=== PATIENT | female | born 1965 | race Caucasian/White ===

== ENCOUNTER 2025-05-11 12:52 | Emergency (ER) | payer OTHER, SELFPAY ==
[2025-05-11 12:59] VITALS: BP 190/115; PULSE 93; TEMP 36.9; O2SAT 97; BMI 29.4
--- OUTSIDE RECORDS SUMMARY | 2025-05-11 13:23 | XMS_ITS | Clinical Summary ---
Author Organization [facility] Address [address] [place] [address] Care Team Providers Care Oracle Soa Architect Name Role Phone Unavailable Primary Care Provider Unavailabl e Social History Tobacco UseTypesPacks/DayYears UsedDateSmoking Tobacco: Never Assessed CommentsUnknownSex and Gender InformationValueDate RecordedSex Assigned at Not on fileLegal NefMuciie53/15/2023 6:46 PM EDTGender IdentityNot on fileSexual OrientationNot on file Plan of Treatment Not on file Insurance
--- OUTSIDE RECORDS SUMMARY | 2025-05-11 13:23 | XMS_ITS | Clinical Summary ---
Author Organization [facility] Address [id number] [place] [address] Care Team Providers Care [place] Cutter Operator Name Role Phone Rhett La MD Primary Care Provider [phone] Allergies Active AllergyReactionsCriticalityNoted DateCommentsSumatriptan Succinate 06/26/20189177Pmdqdvlkehp92/09/2018Pneumococcal Ziarjqi6206/26/2018 Medications MedicationSigDispense QuantityRefillsLast FilledStart DateEnd DateStatus levothyroxine sodium (TIROSINT) 125 mcg capsule Take 125 mcg by mouth daily.Active vortioxetine hydrobromide (TRINTELLIX ORAL) Take 20 mg/day by mouth daily.Active acetaminophen-caffeine (EXCEDRIN TENSION HEADACHE) 500-65 mg tablet Take by mouth.Active clonazePAM (KlonoPIN) 1 mg tablet Indications:Restless legsTake 1 tablet (1 mg total) by mouth nightly as needed for seizures. 30 tablet 09/24/2018Active ondansetron (ZOFRAN) 4 mg tablet Take 1 tablet (4 mg total) by mouth every 8 (eight) hours as needed for nausea or vomiting. 20 tablet Active doxepin (SINEquan) 25 mg capsule Take 1 capsule (25 mg total) by mouth 3 (three) times a day. 90 capsule Active Active Problems ProblemNoted DateDiagnosed HdjfIfxrweoenj05/07/8361Qlxvmts82/07/2019Migraine with aura and without status migrainosus, not qdyczisgswz67/07/2019Restless legs 09/22/20186323Ebauss35/27/2014 Family History Medical HistoryRelationNameCommentsHypertensionSisterRelationNameStatusComments BrotherDeceasedFatherDeceasedMotherDeceasedSister Social History Tobacco UseTypesPacks/DayYears UsedDateSmoking Tobacco: Every DayCigarettes2.520 Smokeless Tobacco: NeverAlcohol UseStandard Drinks/WeekCommentsNo0 (1 standard drink = 0.6 oz pure alcohol)AUDIT-CAnswerDate RecordedFrequency of Alcohol SwvhqbmxzjiEtwjp58/09/2018Average Number of DrinksNot on file06/26/2018Frequency of Binge DrinkingNot on file06/26/2018PHQ-2AnswerDate RecordedTotal Score0 09/22/2018ChildcareAnswerDate RgnkbwqwVchieetekDlwdhmt44/12/2019EmploymentAnswer Date WgrxjjgdGlsaqezfuvOunsvvk00/12/2019Purpose - LifeAnswerDate RecordedPurpose and direction in aorqOtdlsdg27/11/2021CommentsNoSex and Gender InformationValueDate RecordedSex Assigned at BirthNot on fileLegal SexFemale 02/21/2015 11:39 AM EDTGender IdentityNot on fileSexual OrientationNot on file Last Filed Vital Signs Vital SignReadingTime TakenCommentsBlood Uxzdpkck162/80009/24/2018 10:10 AM EST Rukka5005/09/2019 10:10 AM VDMOeopzdmfavg52.6 ??C (97.8 ??F)09/24/2018 10:10 AM ESTRespiratory Wetm501009/24/2018 10:10 AM ESTOxygen Rhvhqamtou78%06/26/2018 11:17 AM ESTInhaled Oxygen Concentration--Exzbos71.9 kg (143 lb)09/24/2018 10:10 AM IGJFqugfz575 cm (5' 3 )09/24/2018 10:10 AM ESTBody Mass Index25.33009/24/2018 10:10 AM EST Plan of Treatment Health MaintenanceDue DateLast DoneCommentsDepression Decbdxyyk16/01/1978Tobacco Bmiurcblr82/01/1978Adult BMI Cfhwqujbn57/01/1984DTaP,Tdap and Td Vaccines (1 - Tdap)1985Zoster (Shingles) Vaccine (1 of 2)2016Influenza Vaccine 03/19/2025 Medical Devices Not on file Insurance Care Teams Team MemberRelationshipSpecialtyStart DateEnd Date Rhett La MD PCP - GeneralFamily Medicine01/04/19
--- OUTSIDE RECORDS SUMMARY | 2025-05-11 13:23 | XMS_ITS | Clinical Summary ---
Author Organization [facility] Address [address] [place] [address] Care Team Providers Care Corporate Vp Advertising & Online Name Role Phone Sheng Cm MD Primary Care Provider [phone] Allergies Active AllergyReactionsCriticalityNoted DateCommentsSumatriptan Succinate Jcyryjswryl00/27/9673HjlqxsoxcxbNelcrzvrqpb29/27/2014Pneumococcal VaccineUnknown 06/26/2018 Medications MedicationSigDispense QuantityRefillsLast FilledStart DateEnd DateStatus buprenorphine 20 mcg/hour ptwk Apply as directed.Active TRINTELLIX 20 mg tab 04/24/2016Active SYMBICORT 160-4.5 mcg/actuation inhaler 05/18/2016Active ondansetron orally disintegrating (ZOFRAN ODT) 4 mg disintegrating tablet 05/31/2016Active acetaminophen/caffeine (EXCEDRIN TENSION HEADACHE ORAL) Indications:Iron deficiency anemia, unspecified iron deficiency anemia typeTake by mouth.Active butorphanol (STADOL NS) 10 mg/mL nasal spray Indications:Iron deficiency anemia, unspecified iron deficiency anemia typeUse 1 Carpenter in the nose.Active levothyroxine (SYNTHROID) 125 mcg tablet Indications:Iron deficiency anemia, unspecified iron deficiency anemia typeTake 125 mcg by mouth once daily.Active promethazine (PHENERGAN) 25 mg tablet Indications:Iron deficiency anemia, unspecified iron deficiency anemia typeTake 25 mg by mouth four times daily as needed.Active rOPINIRole (REQUIP) 1 mg tablet Indications:Iron deficiency anemia, unspecified iron deficiency anemia typeTake 1 mg by mouth.Active traZODone (DESYREL) 50 mg tablet Indications:Iron deficiency anemia, unspecified iron deficiency anemia typeTake 50 mg by mouth.Active vortioxetine hydrobromide (TRINTELLIX ORAL) Indications:Iron deficiency anemia, unspecified iron deficiency anemia typeTake by mouth.Active buprenorphine (BUTRANS) 20 mcg/hour ptwk Indications:Iron deficiency anemia, unspecified iron deficiency anemia typeApply 1 Patch as directed.Active Active Problems ProblemNoted DateDiagnosed DateEsophageal pqyolbphecc48/03/7500Gobeqg03/27/2014 Bfltrzdyosiol90/27/2014 Social History Tobacco UseTypesPacks/DayYears UsedDateSmoking Tobacco: Every DaySmokeless Tobacco: NeverAlcohol UseStandard Drinks/WeekCommentsNo0 (1 standard drink = 0.6 oz pure alcohol)PHQ-2AnswerDate RecordedPHQ-2 Wjyds14008/10/2018CommentsNo Sex and Gender InformationValueDate RecordedSex Assigned at BirthNot on file Legal BojZvllyr65/02/2012 9:48 AM ESTGender IdentityNot on fileSexual OrientationNot on file Last Filed Vital Signs Vital SignReadingTime TakenCommentsBlood Kuydzfxa594/7807/08/2018 9:45 AM EST Dyiyc698207/08/2018 9:45 AM CNEEldgycpdsks40.8 ??C (98.2 ??F)07/08/2018 9:45 AM ESTRespiratory Xzie852509/08/2017 9:45 AM ESTOxygen Tyxbaudqcu27%07/08/2018 9:45 AM ESTInhaled Oxygen Concentration--Cbkygk42.9 kg (134 lb 3.2 oz)07/08/2018 9:45 AM AEMXyqwtz927.5 cm (5' 2.01 )07/08/2018 9:45 AM ESTBody Mass Index24.54 07/08/2018 9:45 AM EST Plan of Treatment Health MaintenanceDue DateLast DoneCommentsAnxiety Ndvogidqc34/01/1984Depression Jyolbdtpv89/01/1984Hepatitis C Ecgsohvsu42/01/1984DTaP,Tdap,Td Vaccine (1 - Tdap)1985Hepatitis B Vaccine (1 of 3 - 19+ 3-dose series)1985 Cervical Cancer Vgoehhqqz08/01/1987Mammogram Atzprxjqb97/01/2006CT Colonography 2011Cologuard (FIT-DNA)06/18/20119910Zmtjjhmpilw83/01/2011Colorectal Cancer Xqarcnfdb43/01/2011Fecal Occult Blood2011Lipid Uyfgznkcf86/01/2011 Zfnkhuhdzkxxl75/01/2011Pneumococcal Vaccine: 50+ (1 of 1 - PCV)2016 Shingrix Vaccine (1 of 2)2016Diabetes Xhlfdgcaj21, 11/16/2016, 08/03/2016, Additional history existsCovid-19 Vaccine (1 - 2024- season)2025Influenza Vaccine (#1)2025HIV ScreeningCompleted 05/21/2014 Procedures Procedure NamePriorityDate/TimeAssociated DiagnosisCommentsCOMPREHENSIVE METABOLIC DASLKXquloxx01/11/2017 9:03 AM EDT Microcytic anemia HIV 1/2 COMBO WITH REFLEX TO YTHQOKGLUTOJJKUJghyttw53/03/2014 3:48 PM EST Esophageal candidiasis (HCC) from Last 3 Months or Most Recently Relevant to Health Maintenance Results * (ABNORMAL) COMP METABOLIC PANEL (03/29/2017 9:03 AM EDT)ComponentValueRef RangeTest MethodAnalysis TimePerformed AtPathologist SignatureProtein, Total 7.46.3 - 8.0 g/dL03/30/2017 11:[address] [facility] Albumin4.13.9 - 4.9 g/dL03/30/2017 11:[address] [facility] LABORATORYCalcium9.58.5 - 10.2 mg/dL03/30/2017 11:[address] [facility] LABORATORYBilirubin, Total0.20.2 - 1.3 mg/dL03/30/2017 11:22 AM EDT [facility] LABORATORYAlkaline Hhsiifpckyi236(H)32 - 117 U/L 03/30/2017 11:[address] [facility] TDHAKWHEUCBXT6874 - 35 U/L 03/30/2017 11:[address] [facility] OMJTNSLXLWElilezd84(L)74 - 99 mg/dL03/30/2017 11:[address] [facility] LABORATORYComment: The [place] Diabetes Association (ADA) provides guidance for cutoff values for fasting glucose and random glucose. The ADA defines fasting as no caloric intake for at least 8 hours. Fasting plasma glucose results between 100 to 125 mg/dL indicate increased risk for diabetes (prediabetes). Fasting plasma glucose results greater than or equal to 126 mg/dL meet the criteria for diagnosis of diabetes. In the absence of unequivocal hyperglycemia, results should be confirmed by repeat testing. In a patient with classic symptoms of hyperglycemia or hyperglycemic crisis, random plasma glucose results greater than or equal to 200 mg/dL meet the criteria for diagnosis of diabetes. Reference: Standards of Medical Care in Diabetes 2016, [place] Diabetes Association. Diabetes Care. 2016.39(Suppl 1). HRQ465 - 21 mg/dL03/30/2017 11:[address] [facility] Creatinine0.880.58 - 0.96 mg/dL03/30/2017 11:[address] [facility] OARQLEZMLSJjmxjt992868 - 144 mmol/L03/30/2017 11:[address] [facility] LABORATORYPotassium4.23.7 - 5.1 mmol/L03/30/2017 11:[address] [facility] IMLZXRTNUBWvzhphiq05198 - 105 mmol/L03/30/2017 11:[address] [facility] WFTHFKTQUXAA32500 - 30 mmol/L03/30/2017 11:[address] [facility] LABORATORYAnion Ndp288 - 18 mmol/L03/30/2017 11:[address] [facility] NXCYGLUKQXRZQ372 - 38 U/L03/30/2017 11:[address] [facility] eGFR->6009/06/2017 11:[address] [facility] eGFR-All Other Races>60.03/30/2017 11:[address] [facility] Comment: eGFR (Estimated GFR) Units of measure: mL/min/1.73 meters squared eGFR is derived from the reexpressed MDRD Study equation using the following parameters: serum creatinine, age, gender and race. The creatinine assay has been calibrated to be traceable to IDMS. An eGFR <60 mL/min/1.73m2 for >3 months is consistent with chronic kidney disease. Refer to KDOQI guidelines for clinical interpretation. In patients with unstable renal function, e.g. those with acute kidney injury, the eGFR may not accurately reflect actual GFR. Specimen (Source)Anatomical Location / LateralityCollection Method / Volume Collection TimeReceived TimeBlood specimen (specimen)BLOOD SPECIMEN / Unknown 03/29/2017 9:03 AM EDT03/29/2017 9:05 AM EDT Narrative Authorizing ProviderResult TypeResult StatusAlfred P VargasLABORATORYFinal ResultPerforming OrganizationAddressCity/State/ZIP CodePhone Number [facility] [address] [place] [address] * HIV 1,2 COMBO (AG/AB) (05/21/2014 3:48 PM EST)ComponentValueRef RangeTest MethodAnalysis TimePerformed AtPathologist SignatureHIV 12 Combo (Ag/Ab)Non ReactiveNRSELECT MEDICAL [facility] LABORATORYComment: (NOTE) HIV Information: ??[place] Rev. Code 3701.243(E): This information has been disclosed to you from confidential records protected from disclosure by state law. You shall make no further disclosure of this information without the specific, written, and informed release of the individual to whom it pertains, or as otherwise permitted by state law. A general authorization for the release of medical or other information is not sufficient for the purpose of the release of HIV test results or diagnoses. Specimen (Source)Anatomical Location / LateralityCollection Method / Volume Collection TimeReceived TimeBlood specimen (specimen)BLOOD SPECIMEN / Unknown 05/21/2014 3:48 PM EST05/21/2014 3:50 PM EST Narrative Authorizing ProviderResult TypeResult StatusAlfred P VargasLABORATORYFinal ResultPerforming OrganizationAddressCity/State/ZIP CodePhone Number [facility] [address] [place] [address] from Last 3 Months or Most Recently Relevant to Health Maintenance Insurance Care Teams Team MemberRelationshipSpecialtyStart Date Sheng Cm MD PCP - GeneralFamily Uhvnqean47/21/14
[2025-05-11] MEDS: DEXAMETHASONE SOD PHOS 10 MG/ML VIAL IM (13:25)
--- NOTE | 2025-05-11 13:25 | ED_ITS ---
HPI HPI - General Adult General Chief complaint: Allergic Reaction Stated complaint: POSSIBLE ALLERGIC REACTION Time Seen by Provider: 05/11/25 12:53 Source: patient Mode of arrival: walk-in History of Present Illness HPI narrative: Patient is a 59-year-old female, no diagnosed medical conditions, presenting to the emergency department for concerns of a rash. Patient states that her rash started approximately 5 days ago when she was out in the sun. She states that she is a redhead and gets sun poisoning quite often. She states that she has been having an itchy, painful rash over this period. She has been using izmd-vxe-omgapyt Benadryl, Tylenol, Motrin, which only minimally helps her symptoms. She states that usually course of prednisone improves her symptoms. Other than the rash on her arms and back, she denies any other symptoms. No fevers or chills. No chest pain or shortness of breath. No tongue or facial swelling. No nausea or vomiting. Of note, the patient has not seen a primary care physician in many years. She denies any new medications. Related Data Previous Rx's ?Medication ?Instructions ?Recorded prednisone 20 mg tablet 20 mg PO DAILY 4 days #4 tab s 05/11/25 Allergies Allergy/AdvReac Type Severity Reaction Status Date / Time Penicillins Allergy Rash Verified 05/11/25 12:58 sumatriptan (From Imitrex) Allergy dyspnea Verified 05/11/25 12:58 Review of Systems ROS Status of ROS 10 or more systems reviewed and unremark able except as noted in history and below PFSH PFSH Social History Little interest or pleasure in doing things: not at all Feeling down, depressed, or hopeless: not at all Exam Narrative Exam Narrative: CONSTITUTIONAL: Well-appearing, answering questions and following commands appropriately SKIN: The patient has many freckles. There is an erythematous rash scattered along the patient's bilateral arms and upper back. The rash is not tender to palpation, there is no induration or purulent drainage. No crepitus. No involvement of the mucosal surfaces. EYES: Sclerae white. EARS, NOSE, THROAT: Moist oral mucosa. No tongue or lip swelling. Speaking with a normal voice. RESPIRATORY: Clear to auscultation bilaterally, no wheezes, crackles, or stridor, no use of accessory muscles CARDIOVASCULAR: Normal rate and regular rhythm. There is no S3, S4, murmur, rub. GASTROINTESTINAL: Abdomen is nondistended. MUSCULOSKELETAL: No peripheral edema. NEUROLOGIC: Patient is awake and alert. Facies were symmetrical. Constitutional Vital Signs, click to edit/add: Last Vital Signs Temp 98.5 F 05/11/25 12:59 Pulse 93 H 05/11/25 12:59 Resp 16 05/11/25 12:59 BP 190/115 H 05/11/25 12:59 Pulse Ox 97 05/11/25 12:59 O2 Del Method Room Air 05/11/25 12:59 Course Vital Signs Vital signs: Vital Signs Temperature 98.5 F 05/11/25 12:59 Pulse Rate 93 H 05/11/25 12:59 Respiratory Rate 16 05/11/25 12:59 Blood Pressure 190/115 H 05/11/25 12:59 Pulse Oximetry 97 05/11/25 12:59 Oxygen Delivery Method Room Air 05/11/25 12:59 Temperature 98.5 F 05/11/25 12:59 Pulse Rate 93 H 05/11/25 12:59 Respiratory Rate 16 05/11/25 12:59 Blood Pressure 190/115 H 05/11/25 12:59 Pulse Oximetry 97 05/11/25 12:59 Oxygen Delivery Method Room Air 05/11/25 12:59 Medical Decision Making [facility] Narrative Medical decision making narrative: Patient is a 59-year-old female presenting to the emergency department with a 5- day history of a pruritic, painful rash on her arms and back after being exposed to the sun. Her vital signs arrival are significant for hypertension, otherwise within normal limits. She is afebrile and hemodynamically stable. Examination as noted above. The patient's history and physical examination is consistent with dermatitis, may be related to sun exposure. She has no other systemic symptoms and is overall well-appearing. There is no involvement of the mucosal surfaces and she has no new medication changes, making etiology such as SJS of low likelihood. I did offer to obtain laboratory studies as she has not seen a PCP in many years, however the patient declined. Patient will be treated with IM dexamethasone while here in the ED. I do believe the patient is stable for discharge. They were instructed to follow up with primary care physician for further health maintenance and follow-up on her rash. Return precautions were given including any new or worsening symptoms. They were given a prescription for prednisone 20 mg daily x 4 days. She was also instructed continue taking Benadryl for symptoms. Patient understands and agrees to the plan. FINAL IMPRESSION: #Acute dermatitis DISPOSITION: Discharged home CONDITION: Good Discharge Plan Discharge Chief Complaint: Allergic Reaction Clinical Impression: Dermatitis Patient Disposition: Home, Self-Care Time of Disposition Decision: 13:13 Condition: Good Mode of Transportation: Private Vehicle Prescriptions / Home Meds: New prednisone 20 mg tablet 20 mg PO DAILY 4 Days Qty: 4 0RF Print Language: Czech Instructions: Dermatitis (ED)
== END 2025-05-11 13:34 | disposition home or self-care (01) ==
PROVIDERS: Emergency Provider Student in an Organized Health Care Education/Training Program
DX: L30.9 Dermatitis, unspecified (principal)
CPT/HCPCS: 96372; 99284; J1100

== ENCOUNTER 2025-05-13 16:11 | Emergency (ER) | payer OTHER, SELFPAY ==
[2025-05-13 16:16] VITALS: BP 192/100; PULSE 81; TEMP 37; O2SAT 98; BMI 29.2
--- OUTSIDE RECORDS SUMMARY | 2025-05-13 16:17 | XMS_ITS | Clinical Summary ---
Author Organization [facility] Address [address] [place] [address] Care Team Providers Care Director Housekeeping Name Role Phone Unavailable Primary Care Provider Unavailabl e Social History Tobacco UseTypesPacks/DayYears UsedDateSmoking Tobacco: Never Assessed CommentsUnknownSex and Gender InformationValueDate RecordedSex Assigned at Not on fileLegal GuwNvicqm92/15/2023 6:46 PM EDTGender IdentityNot on fileSexual OrientationNot on file Plan of Treatment Not on file Insurance
--- OUTSIDE RECORDS SUMMARY | 2025-05-13 16:17 | XMS_ITS | Clinical Summary ---
Author Organization [facility] Address [id number] [place] [address] Care Team Providers Care Manufacturing Engineering Technician Name Role Phone Rhett La MD Primary Care Provider [phone] Allergies Active AllergyReactionsCriticalityNoted DateCommentsSumatriptan Succinate 06/26/20182955Hgkehdbfhzd75/09/2018Pneumococcal Ejnsqbd4106/26/2018 Medications MedicationSigDispense QuantityRefillsLast FilledStart DateEnd DateStatus levothyroxine [...] 90 capsule Active Active Problems ProblemNoted DateDiagnosed QyikMpbgxoegbg24/07/3388Smgnatz48/07/2019Migraine with aura and without status migrainosus, not mhzesyselul04/07/2019Restless legs 09/22/20181017Zbtgor83/27/2014 Family History Medical HistoryRelationNameCommentsHypertensionSisterRelationNameStatusComments BrotherDeceasedFatherDeceasedMotherDeceasedSister Social History Tobacco UseTypesPacks/DayYears UsedDateSmoking Tobacco: Every DayCigarettes2.520 Smokeless Tobacco: NeverAlcohol UseStandard Drinks/WeekCommentsNo0 (1 standard drink = 0.6 oz pure alcohol)AUDIT-CAnswerDate RecordedFrequency of Alcohol EcfpkbajprvTsyod35/09/2018Average Number of DrinksNot on file06/26/2018Frequency of Binge DrinkingNot on file06/26/2018PHQ-2AnswerDate RecordedTotal Score0 09/22/2018ChildcareAnswerDate MgjqkfziAsxhtciaeGoxmbue78/12/2019EmploymentAnswer Date VzewgdrtQwmvxusearFmkglrz98/12/2019Purpose - LifeAnswerDate RecordedPurpose and direction in rsywIxupoij02/11/2021CommentsNoSex and Gender InformationValueDate RecordedSex Assigned at BirthNot on fileLegal SexFemale 02/21/2015 11:39 AM EDTGender IdentityNot on fileSexual OrientationNot on file Last Filed Vital Signs Vital SignReadingTime TakenCommentsBlood Ijjhynof146/80009/24/2018 10:10 AM EST Qichc7951/09/2019 10:10 AM JXXTfgqqdgrazq11.6 ??C (97.8 ??F)09/24/2018 10:10 AM ESTRespiratory Oekd358209/24/2018 10:10 AM ESTOxygen Nzatjezzgq72%06/26/2018 11:17 AM ESTInhaled Oxygen Concentration--Gtivkn95.9 kg (143 lb)09/24/2018 10:10 AM XPYZybxud377 cm (5' 3 )09/24/2018 10:10 AM ESTBody Mass Index25.33009/24/2018 10:10 AM EST Plan of Treatment Health MaintenanceDue DateLast DoneCommentsDepression Socexbckt95/01/1978Tobacco Cuzrcydta04/01/1978Adult BMI Jfkokrtzl50/01/1984DTaP,Tdap and Td Vaccines (1 - Tdap)1985Zoster (Shingles) Vaccine (1 of 2)2016Influenza Vaccine 03/19/2025 Medical Devices Not on file Insurance Care Teams Team MemberRelationshipSpecialtyStart DateEnd Date Rhett La MD PCP - GeneralFamily Medicine01/04/19
--- OUTSIDE RECORDS SUMMARY | 2025-05-13 16:17 | XMS_ITS | Clinical Summary ---
Author Organization [facility] Address [address] [place] [address] Care Team Providers Care Beverage Sales Consultant Name Role Phone Sheng Cm MD Primary Care Provider [phone] Allergies Active AllergyReactionsCriticalityNoted DateCommentsSumatriptan Succinate Eohmdgmptfb83/27/0729DbmessmszofNuozyhwjxvw79/27/2014Pneumococcal VaccineUnknown 06/26/2018 Medications MedicationSigDispense QuantityRefillsLast FilledStart DateEnd [...] anemia, unspecified iron deficiency anemia typeUse 1 [place] in the nose.Active levothyroxine (SYNTHROID) 125 mcg [...] as directed.Active Active Problems ProblemNoted DateDiagnosed DateEsophageal /03/3846Exjoby69/27/2014 Gguexwqtgdpeh19/27/2014 Social History Tobacco UseTypesPacks/DayYears UsedDateSmoking Tobacco: Every DaySmokeless Tobacco: NeverAlcohol UseStandard Drinks/WeekCommentsNo0 (1 standard drink = 0.6 oz pure alcohol)PHQ-2AnswerDate RecordedPHQ-2 Nyxvl51708/10/2018CommentsNo Sex and Gender InformationValueDate RecordedSex Assigned at BirthNot on file Legal JzfHqzdow15/02/2012 9:48 AM ESTGender IdentityNot on fileSexual OrientationNot on file Last Filed Vital Signs Vital SignReadingTime TakenCommentsBlood Gugdzdmv021/7807/08/2018 9:45 AM EST Dnsfz086507/08/2018 9:45 AM KWCPwsxcdfribs52.8 ??C (98.2 ??F)07/08/2018 9:45 AM ESTRespiratory Yjoy858809/08/2017 9:45 AM ESTOxygen Hcceagqvbf72%07/08/2018 9:45 AM ESTInhaled Oxygen Concentration--Pklega41.9 kg (134 lb 3.2 oz)07/08/2018 9:45 AM EREVihcnh511.5 cm (5' 2.01 )07/08/2018 9:45 AM ESTBody Mass Index24.54 07/08/2018 9:45 AM EST Plan of Treatment Health MaintenanceDue DateLast DoneCommentsAnxiety Qhfismjim28/01/1984Depression Hfrslyqrc98/01/1984Hepatitis C Ngeaxuuer52/01/1984DTaP,Tdap,Td Vaccine (1 - Tdap)1985Hepatitis B Vaccine (1 of 3 - 19+ 3-dose series)1985 Cervical Cancer Jrzvohvci98/01/1987Mammogram Gounsbxzu92/01/2006CT Colonography 2011Cologuard (FIT-DNA)06/18/20112512Geoiqojdpug63/01/2011Colorectal Cancer Xcywbpuog52/01/2011Fecal Occult Blood2011Lipid Gkuwmuhet78/01/2011 Dclzidrpyphfw23/01/2011Pneumococcal Vaccine: 50+ (1 of 1 - PCV)2016 Shingrix Vaccine (1 of 2)2016Diabetes Kyzwhuryy08, 11/16/2016, 08/03/2016, Additional history existsCovid-19 Vaccine (1 - 2024- season)2025Influenza Vaccine (#1)2025HIV ScreeningCompleted 05/21/2014 Procedures Procedure NamePriorityDate/TimeAssociated DiagnosisCommentsCOMPREHENSIVE METABOLIC KYMOPVrodfir77/11/2017 9:03 AM EDT Microcytic anemia HIV 1/2 COMBO WITH REFLEX TO EWSPUHZQSPSYHGAYuwckxr59/03/2014 3:48 PM EST Esophageal candidiasis (HCC) from Last 3 Months or Most Recently Relevant to Health Maintenance Results * (ABNORMAL) COMP METABOLIC PANEL (03/29/2017 9:03 AM EDT)ComponentValueRef RangeTest MethodAnalysis TimePerformed AtPathologist SignatureProtein, Total 7.46.3 - 8.0 g/dL03/30/2017 11:22 AM [facility] Albumin4.13.9 - 4.9 g/dL03/30/2017 11:22 AM [facility] LABORATORYCalcium9.58.5 - 10.2 mg/dL03/30/2017 11:22 AM [facility] LABORATORYBilirubin, Total0.20.2 - 1.3 mg/dL03/30/2017 11:22 AM EDT [facility] LABORATORYAlkaline Ppkatolwrkd616(H)32 - 117 U/L 03/30/2017 11:22 AM [facility] BSYVUOOQYFXUH9107 - 35 U/L 03/30/2017 11:22 AM [facility] KDMGYXRGUVGoffwzk63(L)74 - 99 mg/dL03/30/2017 11:22 AM [facility] LABORATORYComment: The [place] [employer] (ADA) provides guidance for cutoff [...] Standards of Medical Care in Diabetes 2016, [place] [employer]. Diabetes Care. 2016.39(Suppl 1). TYE075 - 21 mg/dL03/30/2017 11:22 AM [facility] Creatinine0.880.58 - 0.96 mg/dL03/30/2017 11:22 AM [facility] XFNRKCQAXJLdtyst298955 - 144 mmol/L03/30/2017 11:22 AM [facility] LABORATORYPotassium4.23.7 - 5.1 mmol/L03/30/2017 11:22 AM [facility] NDOIOELUZHBnrffgqw53743 - 105 mmol/L03/30/2017 11:22 AM [facility] CFIXAIGNJNMA53739 - 30 mmol/L03/30/2017 11:22 AM [facility] LABORATORYAnion Iek496 - 18 mmol/L03/30/2017 11:22 AM [facility] HVEYVDFIZWEAZ193 - 38 U/L03/30/2017 11:22 AM [facility] eGFR->6009/06/2017 11:22 AM [facility] eGFR-All Other Races>60.03/30/2017 11:22 AM [facility] Comment: eGFR (Estimated GFR) Units [...] StatusAlfred P VargasLABORATORYFinal ResultPerforming OrganizationAddressCity/State/ZIP CodePhone Number [facility] [address] [place] [address] * HIV 1,2 COMBO (AG/AB) (05/21/2014 3:48 PM EST)ComponentValueRef RangeTest MethodAnalysis TimePerformed AtPathologist SignatureHIV 12 Combo (Ag/Ab)Non ReactiveNRPREMIER HEALTH [facility]PPER [facility] LABORATORYComment: (NOTE) HIV Information: ??[place] Rev. Code 3701.243(E): This information has been [...] StatusAlfred P VargasLABORATORYFinal ResultPerforming OrganizationAddressCity/State/ZIP CodePhone Number [facility] [address] [place] [address] from Last 3 Months or Most Recently Relevant to Health Maintenance Insurance Care Teams Team MemberRelationshipSpecialtyStart Date Sheng Cm MD PCP - GeneralFamily Idysdohv51/21/14
[2025-05-13 17:00] LABS: Hematocrit 46.7 % (36.0-48.0); Hemoglobin 15.8 g/dL (12.0-16.0); Immature Granulocytes Abs Auto 0.09 10^3/uL (0.00-0.03); Immature Granulocytes Pct Auto 0.8 % (0.0-0.5); Lymphocytes Absolute Auto 2.7 10^3/uL (1.2-3.8); Mean Corpuscular HGB Conc 33.8 g/dL (29.9-35.2); Mean Corpuscular Hemoglobin 30.3 pg (26.7-34.0); Mean Corpuscular Volume 89.5 fL (81.0-99.0); Platelet Count 238 10^3/uL (150-450); Red Blood Count 5.22 10^6/uL (4.20-5.40); White Blood Count 10.8 10^3/uL (4.0-11.0)
[2025-05-13 17:16] LABS: Alanine Aminotransferase 61 U/L (14-59); Albumin Globulin Ratio 0.9; Albumin Level 3.2 g/dL (3.4-5.0); Alkaline Phosphatase 168 U/L (46-116); Anion Gap 16.0; Aspartate Amino Transferase 22 U/L (15-37); Blood Urea Nitrogen 26.0 mg/dL (7.0-18.0); Calcium 8.5 mg/dL (8.5-10.1); Carbon Dioxide 24.0 mmol/L (21.0-32.0); Chloride 105 mmol/L (98-107); Estimated GFR (African America >60 (>=60 mL/min/1.73m^2); Estimated GFR (Non-African Ame >60 (>=60 mL/min/1.73m^2); Globulin 3.6 g/dL; Glucose 98 mg/dL (74-106); Potassium 4.0 mmol/L (3.5-5.1); Sodium 141 mmol/L (136-145); Total Protein 6.8 g/dL (6.4-8.2)
[2025-05-13] MEDS: KETOROLAC TROMETHAMINE 30 MG/ML VIAL IM (18:03)
--- NOTE | 2025-05-13 18:17 | ED_ITS ---
HPI HPI - General Adult General Chief complaint: Allergic Reaction Stated complaint: ISSUE W/ RECENT ALLERGIC REACTION Time Seen by Provider: 05/13/25 16:19 Source: patient Mode of arrival: walk-in Limitations: no limitations History of Present Illness HPI narrative: Patient is a 59-year-old female presenting to the emergency department for concerns of a rash. The patient was seen here in the emergency department 2 days ago with the same symptoms by myself. She states that she has been having an erythematous, painful rash over her bilateral arms and chest for the last week after being exposed to the sun. She has been on prednisone, Motrin, Tylenol, and using aloe vera, however her symptoms persist. She still denies any systemic symptoms. She has had no fevers or chills. No chest pain or shortness of breath. No abdominal pain, nausea, or vomiting. No muscle pain or aches. She denies any chronic medical conditions and takes no daily medications. No new medications. No involvement of the mucosal surfaces such as her mouth or eyes. Related Data Previous Rx's ?Medication ?Instructions ?Recorded prednisone 20 mg tablet 20 mg PO DAILY 4 days #4 tab s 05/11/25 Allergies Allergy/AdvReac Type Severity Reaction Status Date / Time Penicillins Allergy Rash Verified 05/13/25 16:16 sumatriptan (From Imitrex) Allergy dyspnea Verified 05/13/25 16:16 Review of Systems ROS Status of ROS 10 or more systems reviewed and unremark able except as noted in history and below PFSH PFSH Social History Little interest or pleasure in doing things: not at all Feeling down, depressed, or hopeless: not at all Exam Narrative Exam Narrative: CONSTITUTIONAL: Well-appearing, answering questions and following commands appropriately SKIN: The patient has many freckles. There is an erythematous rash scattered along the patient's bilateral arms and upper back. The rash is not tender to palpation, there is no induration or purulent drainage. No crepitus. No involvement of the mucosal surfaces. EYES: Sclerae white. EARS, NOSE, THROAT: Moist oral mucosa. No tongue or lip swelling. Speaking with a normal voice. RESPIRATORY: Clear to auscultation bilaterally, no wheezes, crackles, or stridor, no use of accessory muscles CARDIOVASCULAR: Normal rate and regular rhythm. There is no S3, S4, murmur, rub. GASTROINTESTINAL: Abdomen is nondistended. MUSCULOSKELETAL: No peripheral edema. NEUROLOGIC: Patient is awake and alert. Facies were symmetrical. Constitutional Vital Signs, click to edit/add: Last Vital Signs Temp 98.6 F 05/13/25 16:16 Pulse 81 05/13/25 16:16 Resp 18 05/13/25 16:16 BP 192/100 H 05/13/25 16:16 Pulse Ox 98 05/13/25 16:16 O2 Del Method Room Air 05/13/25 16:16 Course Vital Signs Vital signs: Vital Signs Temperature 98.6 F 05/13/25 16:16 Pulse Rate 81 05/13/25 16:16 Respiratory Rate 18 05/13/25 16:16 Blood Pressure 192/100 H 05/13/25 16:16 Pulse Oximetry 98 05/13/25 16:16 Oxygen Delivery Method Room Air 05/13/25 16:16 Temperature 98.6 F 05/13/25 16:16 Pulse Rate 81 05/13/25 16:16 Respiratory Rate 18 05/13/25 16:16 Blood Pressure 192/100 H 05/13/25 16:16 Pulse Oximetry 98 05/13/25 16:16 Oxygen Delivery Method Room Air 05/13/25 16:16 Medical Decision Making MDM Narrative Medical decision making narrative: Patient is a 59-year-old female presenting to the emergency department with a 7- day history of a painful, erythematous rash on her arms and back after being exposed to the sun. Her vital signs arrival are significant for hypertension, otherwise were within normal limits. She is afebrile and hemodynamically stable. The patient's history and physical examination is consistent with dermatitis, may be related to sun exposure. She has no other systemic symptoms and is overall well-appearing. There is no involvement of the mucosal surfaces and she has no new medication changes, making etiology such as SJS of low likelihood. Given that this is her second visit for the same complaint, I did elect to obtain screening laboratory studies to rule out underlying electrolyte/metabolic derangement. She was given IM ketorolac for pain. Laboratory studies were unremarkable. No significant electrolyte or metabolic derangement. No evidence of acute kidney injury. No anemia, leukocytosis, or thrombocytopenia. Mild transaminitis and mild elevation of alk phos. No hyperbilirubinemia. Still unclear as to the exact etiology to explain her symptoms. However, she is overall well appearing with no systemic symptoms and normal labs. I do believe the patient is stable for discharge. She was given information for a local configuration management architect, and recommended to make an appointment as soon as possible. She was also instructed to follow-up with her primary care physician as well. Return precautions were given including any new or worsening symptoms. Patient understands and agrees to the plan. FINAL IMPRESSION: #Acute dermatitis DISPOSITION: Discharged home CONDITION: Good Medical Records Medical records reviewed: Yes I reviewed the patient's medical records Lab Data Lab results reviewed: Yes I reviewed the patient's lab results Labs: Lab Results 05/13/25 Range/Units 16:51 WBC 10.8 (4.0-11.0) 10^3/uL RBC 5.22 (4.20-5.40) 10^6/uL Hgb 15.8 (12.0-16.0) g/dL Hct 46.7 (36.0-48.0) % MCV 89.5 (81.0-99.0) fL MCH 30.3 (26.7-34.0) pg MCHC 33.8 (29.9-35.2) g/dL RDW 13.8 (11.0-15.0) % Plt Count 238 (150-450) 10^3/uL MPV 10.4 (9.5-13.5) fL Neut % (Auto) 63.8 (43.0-75.0) % Lymph % (Auto) 25.4 (20.5-60.0) % [place] % (Auto) 6.2 (1.7-12.0) % Eos % (Auto) 3.0 (0.9-7.0) % Baso % (Auto) 0.8 (0.2-2.0) % Neut # (Auto) 6.9 H (1.4-6.5) 10^3/uL Lymph # (Auto) 2.7 (1.2-3.8) 10^3/uL [place] # (Auto) 0.7 (0.3-0.8) 10^3/uL Eos # (Auto) 0.3 (0.0-0.7) 10^3/uL Baso # (Auto) 0.1 (0.0-0.1) 10^3/uL Abs Immat Gran (auto) 0.09 H (0.00-0.03) 10^3/uL Imm/Tot Granulo (auto) 0.8 H (0.0-0.5) % Sodium 141 (136-145) mmol/L Potassium 4.0 (3.5-5.1) mmol/L Chloride 105 (98-107) mmol/L Carbon Dioxide 24.0 (21.0-32.0) mmol/L Anion Gap 16.0 BUN 26.0 H (7.0-18.0) mg/dL Creatinine 0.93 (0.55-1.02) mg/dL Est GFR ( Amer) >60 (>=60 mL/min/1.73m^2) Est GFR (Non-Af Amer) >60 (>=60 mL/min/1.73m^2) BUN/Creatinine Ratio 28.0 Glucose 98 (74-106) mg/dL Calcium 8.5 (8.5-10.1) mg/dL Total Bilirubin 0.3 (0.2-1.0) mg/dL AST 22 (15-37) U/L ALT 61 H (14-59) U/L Alkaline Phosphatase 168 H (46-116) U/L Total Protein 6.8 (6.4-8.2) g/dL Albumin 3.2 L (3.4-5.0) g/dL Globulin 3.6 g/dL Albumin/Globulin Ratio 0.9 Discharge Plan Discharge Chief Complaint: Allergic Reaction Clinical Impression: Dermatitis Patient Disposition: Home, Self-Care Time of Disposition Decision: 17:34 Condition: Fair Mode of Transportation: Private Vehicle Prescriptions / Home Meds: No Action prednisone 20 mg tablet 20 mg PO DAILY 4 Days Qty: 4 0RF Print Language: Portuguese Instructions: Dermatitis (ED) Referrals: [facility] [Other] - As soon as possible Physician,Non-Staff, MD [Primary Care Provider] - 1 week Discharge Date/Time: 05/13/25 18:05
== END 2025-05-13 18:05 | disposition home or self-care (01) ==
PROVIDERS: Emergency Provider Student in an Organized Health Care Education/Training Program
DX: L30.9 Dermatitis, unspecified (principal)
CPT/HCPCS: 36415; 80053; 85025; 96372; 99285; J1885